=== PATIENT | female | born 1985 | race Caucasian/White ===

== ENCOUNTER 2022-06-24 10:54 | Emergency (ER) | payer BC, SELFPAY ==
[2022-06-24 11:08] VITALS: BP 127/78; PULSE 77; RESP 16; TEMP 36.7; O2SAT 98
--- NOTE | 2022-06-24 11:44 | ED.EXTPRO ---
HPI - Extremity Problem General Chief complaint: Extremity Problem,Nontraumatic Stated complaint: Right Big Toe Pain Time Seen by Provider: 06/24/22 11:10 Source: patient Mode of arrival: ambulatory Limitations: no limitations History of Present Illness HPI Narrative: Ms. Helms is a 36-year-old female patient presenting to the clinic today with complaints of a right ingrown toenail infection. She reports that her tried to get out the ingrown toenail yesterday without success. States this is been ongoing for 3 to 4 days. She has had some yellow drainage coming from the toenail Related Data Home Medications Medication Instructions Recorded Confirmed No Home Medications 06/24/22 06/24/22 Allergies Allergy/AdvReac Type Severity Reaction Status Date / Time No Known Allergies Allergy Verified 06/24/22 11:25 PMFSH Comments At the time of my signature, I reviewed and agree with the nursing past medical, surgical, social, and family history. There is no relevant family history pertinent to the patient complaint. Exam Narrative: General: Well-developed, well nourished, in no apparent distress Head: Normocephalic, atraumatic. Cardio: Regular rate and rhythm, s1 and s2 normal, no murmur appreciated. Resp: Clear to auscultation bilaterally, no rhonchi, rales, wheezing or rubs. Musculoskeletal: No deformity, mild swelling and redness to the lateral right great toe, tender to palpation over the right lateral distal great toe with mild yellow discharge coming from the side of the toenail/cuticle, some bruising to the base of the toe, grossly normal range of motion, muscle strength strong and equal, peripheral pulse strong, no cyanosis, normal gait and station Course Course Emergency Course: Portions of this record may have been created with voice recognition software. Level of Care: Express Care Visit Vital Signs Vital signs: Vital Signs Temperature 36.7 C 06/24/22 11:08 Pulse Rate 77 06/24/22 11:08 Respiratory Rate 16 06/24/22 11:08 Blood Pressure 127/78 06/24/22 11:08 Pulse Oximetry 98 06/24/22 11:08 Oxygen Delivery Room Air 06/24/22 11:08 Temperature 36.7 C 06/24/22 11:08 Pulse Rate 77 06/24/22 11:08 Respiratory Rate 16 06/24/22 11:08 Blood Pressure 127/78 06/24/22 11:08 Pulse Oximetry 98 06/24/22 11:08 Oxygen Delivery Room Air 06/24/22 11:08 Vital signs reviewed Procedures Other Procedure Procedure 1: Other Procedure: Patient gave verbal consent for wedge resection of the right lateral great toe. Risk and benefits explained and patient voiced understanding. Right great toe was cleansed with Betadine and a digital block using 6 mL of lidocaine without epi was instilled. Digital block was successful. Iris scissors was used to cut down the lateral side of the right great toe nail. Needle holders were used to extract the lateral toenail from the nail bed removing the ingrown toenail. Procedure was successful. Blood loss less than half an mL. Triple antibiotic ointment was applied to the affected area and sterile dressing was applied. Patient tolerated procedure very well. MDM - Extremity (Nontraumatic) MDM Narrative Medical decision making narrative: At the time of visit patient is resting comfortably on the exam table. Patient has infected ingrown toenail to the right lateral great. Patient consented for wedge resection of the right lateral great toenail. Procedure was completed and was successful. Supportive measures were discussed with the patient she voiced understanding of discharge instructions and agrees to treatment plan Discharge Plan Discharge Clinical Impression: Ingrowing toenail with infection Patient Disposition: Home, Self-Care Condition: Stable Instructions: Antibiotic Form, Ingrown Nail (ED) Additional Instructions: Wedge resection completed in the clinic for the right great ingrowing toenail Keep area clean an
[2022-06-24] MEDS: LIDOCAINE HCL 1% LOCAL INJ 2 ML AMPUL 6 ML INFILTRATE (12:23)
== END 2022-06-24 11:48 | disposition home or self-care (01) ==
PROVIDERS: Emergency Provider Nurse Practitioner Family
DX: L60.0 Ingrowing nail (principal); L03.031 Cellulitis of right toe
CPT/HCPCS: 11765; 99212; G0463

== ENCOUNTER 2023-10-14 13:18 | Emergency (ER) | payer BC, SELFPAY ==
[2023-10-14 13:38] VITALS: BP 125/88; PULSE 85; RESP 16; TEMP 37.2; O2SAT 99
--- NOTE | 2023-10-14 14:06 | ED.SKABFB ---
HPI - Skin/Abscess/Foreign Bdy General Chief complaint: Skin/Abscess/Foreign Body Stated complaint: painful lump right armpit Time Seen by Provider: 10/14/23 14:06 Source: patient Mode of arrival: ambulatory Limitations: no limitations History of Present Illness HPI narrative: 37-year-old female presents with Abscess to right axilla for the past 2-3 days. no drainage. Afebrile. Pain worse today when waking up. Reports history of similar episode 1 other time. Had to have I and D. all systems reviewed and negative except as noted above. Related Data Allergies Allergy/AdvReac Type Severity Reaction Status Date / Time No Known Allergies Allergy Verified 10/14/23 13:49 Review of Systems Review of Systems: CONSTITUTIONAL: Denies fever, chills, or sweats. EYES: Denies visual changes, redness, or discharge. ENT: Denies rhinorrhea, congestion, sore throat, or otalgia. CARDIOVASCULAR: Denies chest pain, palpitations, or edema. RESPIRATORY: Denies cough or dyspnea. GASTROINTESTINAL: Denies abdominal pain, nausea, vomiting, or diarrhea. GENITOURINARY: Denies dysuria or hematuria. SKIN: Denies rash or itching. Reports abscess to right axilla. MUSCULOSKELETAL: Denies back pain, joint pain, or myalgia. NEUROLOGIC: Denies headache, numbness, or weakness. PSYCHIATRIC: Denies anxiety or depression. All other systems reviewed are negative, except as documented in HPI. PMFSH Comments At time of signature, agree with nursing past medical, surgical, social and family history. There is no relevant family history pertinent to the presenting complaint. Exam Narrative: GENERAL: This is a well-nourished, well-developed patient, in no apparent distress. HEAD: normocephalic, atraumatic. EYES: PERRL. Sclera clear/white. Vision is grossly intact. EARS: External ears normal NOSE: External nose normal NECK: Neck supple, non-tender without lymphadenopathy, masses or thyromegaly. CARDIOVASCULAR: Regular rate and rhythm without murmurs, gallops, or rubs. RESPIRATORY: Clear to auscultation. Breath sounds equal bilaterally. No wheezes, rales, or rhonchi. SKIN: warm, Dry, intact with no suspicious lesions or rash, good texture and turgor. abscess to R axilla approx. 3 cm diameter, fluctuance with soft tissue swelling, erythematous NEURO: awake, alert, and oriented to person, place and time. There were no obvious focal neurologic abnormalities. EXTREMITIES: No joint tenderness, effusion, or edema noted. Course Course Level of Care: Express Care Visit Vital Signs Vital signs: Vital Signs Temperature 37.2 C 10/14/23 13:38 Pulse Rate 85 10/14/23 13:38 Respiratory Rate 16 10/14/23 13:38 Blood Pressure 125/88 10/14/23 13:38 Pulse Oximetry 99 10/14/23 13:38 Oxygen Delivery Room Air 10/14/23 13:38 Temperature 37.2 C 10/14/23 13:38 Pulse Rate 85 10/14/23 13:38 Respiratory Rate 16 10/14/23 13:38 Blood Pressure 125/88 10/14/23 13:38 Pulse Oximetry 99 10/14/23 13:38 Oxygen Delivery Room Air 10/14/23 13:38 Reviewed Procedures Abscess I/D upper extremity: Date of Incision: 10/14/23 Time of Incision: 14:15 Side (if applicable): right ( axilla) Sedation/analgesia: none Local Anesthetic: lidocaine 1% Amount of anesthesia used (mL): 6 Technique: incised with #11 blade Irrigation: Yes Packing used?: none I&D Results: Pus and Blood MDM - Skin/Abscess/Foreign Bdy MDM Narrative Medical decision making narrative: At time of signature, agree with nursing past medical, surgical, social and family history. There is no relevant family history pertinent to the presenting complaint. Differential Diagnosis Differential diagnosis: Likely abscess of skin or subcutaneous tissue Discharge Plan Discharge Clinical Impression: Abscess of axilla, right Patient Disposition: Home, Self-Care Condition: Stable Instructions: Antibio
== END 2023-10-14 14:28 | disposition home or self-care (01) ==
PROVIDERS: Emergency Provider Nurse Practitioner Family; PCP Family Medicine
DX: L02.411 Cutaneous abscess of right axilla (principal)
CPT/HCPCS: 10060; 99213; G0463

== ENCOUNTER 2024-03-12 11:03 | Emergency (ER) | payer BC, SELFPAY ==
--- NOTE | 2024-03-12 11:05 | ED.BACK ---
HPI - Back Pain/Injury General Chief Complaint: Back Pain/Injury Stated Complaint: lower back pain Time Seen by Provider: 03/12/24 11:05 Source: patient Mode of arrival: ambulatory Limitations: no limitations History of Present Illness HPI Narrative: Patient is a 38-year-old female who presents with right lower back pain that started last Saturday. Patient reports pain has waxed and waned with a few days of no pain since. Reports turning over to shot alarm clock off this morning and pain became more severe. Denies any numbness, tingling or weakness down right leg. Denies any loss of bowel or bladder. To has taken ibuprofen, used heat, used Epsom salt bath. Related Data Home Medications Medication Instructions Recorded Confirmed atorvastatin 40 mg tablet 40 mg PO DAILY 03/12/24 03/12/24 dulaglutide 3 mg/0.5 mL See Rx Instructions .Route .COMPLEX 03/12/24 03/12/24 subcutaneous pen injector (Trulicity) metformin 500 mg tablet 500 mg PO DAILY 03/12/24 03/12/24 Allergies Allergy/AdvReac Type Severity Reaction Status Date / Time No Known Allergies Allergy Verified 03/12/24 11:14 Review of Systems Review of Systems: All systems reviewed & are unremarkable except as noted in HPI and below Constitutional: Constitutional: Denies body ache(s), Denies chills, Denies fatigue, Denies fever(s), Denies headache(s), Denies malaise and Denies weakness Eyes: Eyes: Denies blurry vision, Denies irritation and Denies loss of vision ENT: Denies otalgia, Denies headache(s), Denies nasal discharge, Denies sinus pain and Denies sore throat Cardiovascular: Cardiovascular: Denies chest pain, Denies irregular heart rhythm and Denies dyspnea Respiratory: Respiratory: Denies dyspnea Gastrointestinal: Gastrointestinal: Denies abdominal pain, Denies melena, Denies hematochezia, Denies diarrhea, Denies nausea and Denies vomiting Musculoskeletal: Musculoskeletal: Reports back pain, Denies myalgias and Denies arthralgias Integumentary/Breasts: Skin/Breast: Denies pruritus and Denies rash Neurologic: Denies headache(s), Denies loss of vision and Denies weakness Psychiatric: Psychiatric: Reports no additional psychiatric complaints Endocrine: Endocrine: Denies fatigue PMFSH Comments At time of signature, agree with nursing past medical, surgical, social and family history. There is no relevant family history pertinent to the presenting complaint. Exam Const: General: cooperative, healthy appearing, comfortable, no acute distress and well nourished Nutritional Appearance: well nourished Orientation/consciousness: patient oriented x3 Limitations: no limitations HENMT: Head: normal to inspection, normocephalic and atraumatic Ears: hearing grossly normal bilaterally and external ears normal Face/Nose/Sinus: Normal external nose present, normal facial exam and face symmetric Face and sinus: normal facial exam and face symmetric Mouth: Yes lip normal Eyes: General: appearance normal, both eyes and all related structures Alignment and Position: alignment normal and position normal Periorbital: periorbital findings normal Eyelids: eyelids normal Pupils: Equal, round and reactive pupils present EOM: EOMs intact bilaterally Neck: Neck: normal visual inspection, full ROM and supple Chest: Chest palpation & inspection: normal inspection of the chest Resp: Effort & Inspection: normal respiratory effort and able to speak in complete sentences Auscultation: clear to auscultation bilaterally Cardio: Rate: regular rate Rhythm: regular rhythm Heart sounds: S1 normal heart sound present and S2 normal heart sound present GI: Inspection: normal to inspection Back/Spine/Pelvis: Back: no CVA tenderness Thoracic/Lumbar Spine: thoracic and lumbar spine normal to inspection, pain with thoraco-lumbar ROM, paraspinal muscle tenderness on the right in the upper lumbar, thoraco-lumbar ROM limited (Limited by pain) with rotation to the right and
[2024-03-12 11:21] VITALS: BP 130/75; PULSE 77; RESP 13; TEMP 36.4; O2SAT 98
== END 2024-03-12 12:20 | disposition home or self-care (01) ==
PROVIDERS: Emergency Provider Nurse Practitioner Family; PCP Family Medicine
DX: S39.012A Strain of muscle, fascia and tendon of lower back, initial encounter (principal); X50.9XXA Other and unspecified overexertion or strenuous movements or postures, initial encounter; E78.00 Pure hypercholesterolemia, unspecified; E11.9 Type 2 diabetes mellitus without complications
CPT/HCPCS: 99213; G0463

== ENCOUNTER 2024-05-06 13:33 | Emergency (ER) | payer BC, SELFPAY ==
[2024-05-06 13:45] VITALS: BP 105/69; PULSE 70; RESP 16; TEMP 37.4; O2SAT 99
--- NOTE | 2024-05-06 14:26 | ED.GENADULT ---
HPI - General Adult General Chief complaint: Skin/Abscess/Foreign Body Stated complaint: painful bumps under right arm Source: patient Mode of arrival: ambulatory Limitations: no limitations History of Present Illness HPI narrative: Patient presents for evaluation of three painful swollen lesions to the right axillary region since this past weekend. She indicates she has a history of hydradenitis suppurativa. No fever, chills, nausea, vomiting. She is diabetic. Last A1c 7.6. She states one lesion has been draining. Typically she does not have a pain reduction with use of analgesics. Related Data Home Medications Medication Instructions Recorded Confirmed atorvastatin 40 mg tablet 40 mg PO DAILY 05/06/24 05/06/24 metformin 500 mg tablet 500 mg PO DAILY 05/06/24 05/06/24 tirzepatide 5 mg/0.5 mL See Rx Instructions .Route .COMPLEX 05/06/24 05/06/24 subcutaneous pen injector (Mounjaro) Allergies Allergy/AdvReac Type Severity Reaction Status Date / Time No Known Allergies Allergy Verified 05/06/24 13:36 Review of Systems Review of Systems: CONSTITUTIONAL: Denies fever, chills, or sweats. EYES: Denies visual changes, redness, or discharge. ENT: Denies rhinorrhea, congestion, sore throat, or otalgia. CARDIOVASCULAR: Denies chest pain, palpitations, or edema. RESPIRATORY: Denies cough or dyspnea. GASTROINTESTINAL: Denies abdominal pain, nausea, vomiting, or diarrhea. GENITOURINARY: Denies dysuria or hematuria. SKIN: Reports 3 lesions to the right axillary region MUSCULOSKELETAL: Reports pain in right axillary region. Denies back pain or joint pain NEUROLOGIC: Denies headache, numbness, dizziness, or weakness. PSYCHIATRIC: Denies anxiety or depression. [facility] Past Medical History Medical History Diabetes Hidradenitis suppurativa Surgical History Surgical History No pertinent past surgical history Family History Family History Mother Family history non-contributory Social History Social History Smoking packs per day: 0.5 Smoking cigarettes per day: 10.0 Smoking status: Current every day smoker Gender identity (if verbalized by the patient): Female Exam Narrative: GENERAL: Well-appearing, well-nourished, and in no acute distress. HEAD: Normocephalic, atraumatic. EYES: PERRLA and EOMI. ENT: Nares clear, no rhinorrhea or epistaxis. Mucous membranes moist. Oropharynx without tonsillar hypertrophy exudate or other lesions. Bilateral TMs pearly parker nonbulging NECK: Supple. No adenopathy or masses. No carotid bruits or JVD CHEST: Clear to auscultation. No respiratory distress. No wheezes rales or rhonchi HEART: Regular rate and rhythm. No murmur heard. Normal peripheral pulses. ABDOMEN: Soft, nontender, nondistended, normal active bowel sounds. EXTREMITIES: Normal range of motion. No edema. SKIN: There are (3) indurated masses to right axillary region all of which are under 1 cm in size. There is no active drainage. NEURO: No focal deficits. Alert and oriented x3. PSYCH: Normal mood and affect. Course Course Emergency Course: This is a 38-year-old female who presented for evaluation of painful lesions to the right axillary region. She has a history of hydradenitis and current exam is consistent with that. There is no fluctuance to any of the lesions to suggest drainable fluid collection. Will DC with Bactrim and cephalexin. Analgesics have been ineffective in the past. She was advised to follow-up with her primary care provider and go to the emergency department for worsening symptoms. Pt in agreement with plan of care. Level of Care: Express Care Visit Vital Signs Vital signs: Vital Signs Temperature 37.4 C 05/06/24 13:4
== END 2024-05-06 14:27 | disposition home or self-care (01) ==
PROVIDERS: Emergency Provider Nurse Practitioner; PCP Family Medicine
DX: L73.2 Hidradenitis suppurativa (principal); F17.210 Nicotine dependence, cigarettes, uncomplicated; E11.9 Type 2 diabetes mellitus without complications
CPT/HCPCS: 99213; G0463